=== PATIENT | male | born 1990 | race Caucasian/White ===

== ENCOUNTER 2017-11-24 21:04 | Emergency (ER) | payer BC ==
[~2017-11-24] VITALS: Ht 182.9 cm; Wt 136.0 kg
[2017-11-24 23:19] VITALS: BP 128/84
== END 2017-11-24 23:20 | disposition home or self-care (01) ==
LOC: EME 21:04
DX: S80.01XA Contusion of right knee, initial encounter (principal); S20.211A Contusion of right front wall of thorax, initial encounter; V86.55XA Driver of 3- or 4- wheeled all-terrain vehicle (ATV) injured in nontraffic accident, initial encounter; I10 Essential (primary) hypertension
CPT/HCPCS: 71045; 73564; 99281; 99284